=== PATIENT | female | born 1980 | race Asian ===

== ENCOUNTER 2021-03-14 18:19 | Emergency (ER) | payer SELFPAY ==
[2021-03-14 18:44] VITALS: BP 125/84; PULSE 100; TEMP 98.5; BMI 26.6
[2021-03-14] MEDS ORDERED: ALPRAZolam 1 MG TABLET PO PRN (19:45)
[2021-03-14] MEDS ORDERED: ALPRAZolam 0.25 MG TABLET ONE (19:49)
== END 2021-03-14 19:57 | disposition home or self-care (01) ==
LOC: JER 18:19
DX: F41.1 Generalized anxiety disorder (principal)
CPT/HCPCS: 99283-25

== ENCOUNTER 2021-10-13 22:19 | Emergency (ER) | payer OTHER ==
[2021-10-13 22:28] VITALS: BP 133/86; PULSE 101; TEMP 98; BMI 25.7
[2021-10-13] MEDS ORDERED: ALPRAZolam 1 MG TABLET PO PRN (23:27)
[2021-10-13] MEDS ORDERED: ACETAMINOPHEN 1000 MG/100 ML VIAL IVPB ONE (23:31)
[2021-10-13] MEDS ORDERED: diphenhydrAMINE HCL 25 MG CAPSULE (FP) PO ONE ×2 (23:41→23:43)
== END 2021-10-13 23:58 | disposition home or self-care (01) ==
LOC: JER 22:19
PROC: 3E033NZ Introduction of Analgesics, Hypnotics, Sedatives into Peripheral Vein, Percutaneous Approach (ICD-10-PCS; principal; 2021-10-13)
DX: T43.505A Adverse effect of unspecified antipsychotics and neuroleptics, initial encounter (principal)
CPT/HCPCS: 82962; 99285-25